=== PATIENT | female | born 1955 | race Two or more races ===

== ENCOUNTER 2020-08-11 16:58 | Emergency (ER) | payer MEDICARE, OTHER ==
[~2020-08-11] VITALS: Ht 162.6 cm; Wt 65.8 kg
[2020-08-11 21:38] LABS: Urine Bacteria NONE SEEN /hpf (None Seen); Urine Blood Negative /uL (Negative); Urine Hyaline Cast FEW /lpf (0 - 2); Urine Specific Gravity 1.016 (1.001-1.035); Urine WBC <1 /hpf (0 - 5)
[2020-08-11 22:33] LABS: Basophils # (auto) 0.1 10 ^3/uL (0-0.2); Basophils % (auto) 0.6 % (0.0-2.0); Eosinophils # (auto) 0.2 10 ^3/uL (0-0.8); Eosinophils % (auto) 2.2 % (0.0-7.0); Hematocrit 43.7 % (36.0-46.0); Lymphocytes # (auto) 2.3 10 ^3/uL (0.4-5.4); Lymphocytes % (auto) 27.3 % (10.0-50.0); Mean Corpuscular Hemoglobin 29.1 pg (28.0-32.0); Mean Corpuscular Hgb Conc. 34.3 g/dL (32.0-36.0); Mean Corpuscular Volume 84.9 fL (80.0-100.0); Monocytes # (auto) 0.8 10 ^3/uL (0-1.3); Monocytes % (auto) 8.8 % (0.0-12.0); Neutrophils # (auto) 5.2 10 ^3/uL (1.6-8.6); Neutrophils % (auto) 61.1 % (37.0-80.0); Nucleated Red Blood Cells % 0.3 %; Platelet Count (auto) 255 10^3/uL (140-450); Red Blood Cells 5.15 10^6/uL (4.0-5.20); Red Cell Distribution Width 14.9 % (11.8-14.3); White Blood Cell 8.5 10^3/uL (4.4-10.8)
[2020-08-11 22:52] LABS: Albumin 4.2 g/dL (3.4-5.0); Anion Gap 4 (5-15); Blood Urea Nitrogen 17 mg/dL (7-18); Calcium 9.2 mg/dL (8.5-10.1); Carbon Dioxide 29 mmol/L (21-32); Chloride 107 mmol/L (98-107); Glucose 106 mg/dL (74-106); Potassium 3.9 mmol/L (3.5-5.1); Sodium 140 mmol/L (136-145)
[2020-08-11 22:58] LABS: Alanine Aminotransferase 17 U/L (13-56); Alkaline Phosphatase 82 U/L (45-117); Aspartate Aminotransferase 12 U/L (15-37); Bilirubin, Total 0.4 mg/dL (0.2-1.0); GFR African American 101 mL/min; GFR Non-African American 83 mL/min; Total Protein 8.4 g/dL (6.4-8.2)
[2020-08-12 00:25] VITALS: BP 152/92
== END 2020-08-12 00:23 | disposition home or self-care (01) ==
LOC: EDBD 16:58 → ER 16:58
DX: I10 Essential (primary) hypertension (principal); M54.9 Dorsalgia, unspecified; E11.9 Type 2 diabetes mellitus without complications; Z88.6 Allergy status to analgesic agent
CPT/HCPCS: 36415; 71045; 80053; 81001; 83605; 83735; 84484; 85025; 93005

== ENCOUNTER 2024-01-20 10:42 | Inpatient (IN) | payer OTHER ==
[~2024-01-20] VITALS: Ht 30.5 cm; Wt 63.4 kg
[~2024-01-20 10:42] MED LIST: ASPI81CH59 PO; CLON0.1T PO; FENO160T PO; LOSA-534 PO; NITR0.4S29 SL; SERT25TA28 PO; SUMA50TA2 PO
[2024-01-20] MEDS: VANCOMYCIN HCL 1000 MG VL ONE (11:54)
[2024-01-20] MEDS: ACETAMINOPHEN IV 100 ML IV ONE (11:55)
[2024-01-20] MEDS ORDERED: HYDROmorphone HCL 2 MG/ML VL/or syr IV PRN (12:15)
[2024-01-20] MEDS ORDERED: ONDANSETRON HCL 4 MG/2 ML VIAL IV ONE (12:15)
[2024-01-20] MEDS ORDERED: fentaNYL CITRATE 100 MCG/2 ML VL IV PRN (12:15)
[2024-01-20] MEDS ORDERED: hydrALAZINE HCL 20 MG/ML VL IV PRN (12:15)
[2024-01-20] MEDS: ROPIVACAINE 0.5% (5MG/ML) 20ML AMPULE IJ ONE ×2 (12:42→14:00)
[2024-01-20] MEDS ORDERED: DexAMETHasone SOD PHOS 10MG/1ML VIAL INJ ONE (12:43)
[2024-01-20] MEDS ORDERED: ePHEDrine SULFATE 50 MG/ML AMP ONE (12:58)
[2024-01-20] MEDS ORDERED: MIDAZOLAM HCL 2MG/2ML 2ml VIAL (1mg/ml) ONE (12:59)
[2024-01-20] MEDS: METOPROLOL TARTRATE 50 MG TAB PO ONE (13:10)
[2024-01-20] MEDS: ACETAMINOPHEN IV 1000 MG/100ML (10MG/ML) IV ONE (13:10)
[2024-01-20] MEDS: EPINEPHrine HCL 1 MG/1 ML AMP ONE (13:17)
[2024-01-20] MEDS: TRANEXAMIC ACID 20 ML ONE (13:17)
[2024-01-20] MEDS: ceFAZolin 1GM/50ML 100 ML IV ONE (13:17)
[2024-01-20] MEDS ORDERED: fentaNYL CITRATE 100 MCG/2 ML VL ONE (13:52)
[2024-01-20] MEDS ORDERED: KETOROLAC TROMETH 30 MG/ML 1ML VIAL ONE (14:24)
[2024-01-20] MEDS ORDERED: oxyCODONE HCL 5MG TAB PO PRN ×2 (15:00)
[2024-01-20] MEDS ORDERED: NITROGLYCERIN 0.4 MG SL TAB SL SCH (15:00)
[2024-01-20] MEDS ORDERED: ACETAMINOPHEN 325 MG TAB PO PRN (15:00)
[2024-01-20] MEDS ORDERED: LABETALOL HCL 5 MG/ML ML 20ML VIAL IV ONE (15:03)
[2024-01-20] MEDS ORDERED: PROPOFOL 10 MG/ML 20 ML IV ONE (15:09)
[2024-01-20] MEDS ORDERED: hydrALAZINE HCL 20 MG/ML VL ONE (15:11)
[2024-01-20 15:35] VITALS: RESP 12; O2SAT 95
[2024-01-20] MEDS: HYDROmorphone HCL 2 MG/ML VL/or syr ONE (15:58)
[2024-01-20] MEDS: HYDROmorphone HCL 2 MG/ML VL/or syr IV PRN (15:58)
[2024-01-20] MEDS: ONDANSETRON HCL 4 MG/2 ML VIAL ONE (17:07)
[2024-01-20 17:59] VITALS: BP 148/89; PULSE 102; RESP 18; TEMP 97.2; O2SAT 98
[2024-01-20 18:50] VITALS: RESP 20; O2SAT 97
[2024-01-20 20:00] VITALS: PULSE 106; RESP 19; O2SAT 92
[2024-01-20] MEDS: ACETAMINOPHEN 325 MG TAB PO SCH (20:56)
[2024-01-20] MEDS: KETOROLAC TROMETH 30 MG/ML 1ML VIAL IV SCH (20:56)
[2024-01-20] MEDS: LOSARTAN POTASSIUM 50 MG TAB PO SCH (20:57)
[2024-01-20] MEDS: SERTRALINE HCL 50 MG TAB PO SCH (20:58)
[2024-01-20] MEDS: cloNIDine HCL 0.1 MG TAB PO SCH (20:58)
[2024-01-20] MEDS: PREGABALIN 25 MG CAP PO SCH (20:59)
[2024-01-20 21:00] VITALS: BP 159/85; PULSE 106; RESP 19; TEMP 98.2; O2SAT 92
[2024-01-20] MEDS: ceFAZolin 2 GM/D5W50ml 50 ML IV SCH (21:19)
[2024-01-20] MEDS: D5W/LACTATED RINGERS 1,000 ML IV SCH (21:20)
[2024-01-21 01:00] VITALS: BP 154/89; PULSE 117; RESP 18; TEMP 98.4; O2SAT 95
[2024-01-21] MEDS: ONDANSETRON HCL 4 MG/2 ML VIAL IV PRN (01:15)
[2024-01-21 05:00] VITALS: BP 150/89; PULSE 114; RESP 17; TEMP 98.3; O2SAT 93
[2024-01-21 06:35] LABS: Basophils # (auto) 0 10 ^3/uL (0-0.2); Chloride 103 mmol/L (98-107); Eosinophils # (auto) 0 10 ^3/uL (0-0.8); Hematocrit 34.9 % (36.0-46.0); Hemoglobin 12.3 g/dL (12.2-16.2); Lymphocytes # (auto) 0.9 10 ^3/uL (0.4-5.4); Lymphocytes % (auto) 7.4 % (10.0-50.0); Mean Corpuscular Hemoglobin 29.3 pg (28.0-32.0); Mean Corpuscular Hgb Conc. 35.1 g/dL (32.0-36.0); Mean Corpuscular Volume 83.5 fL (80.0-100.0); Monocytes # (auto) 0.8 10 ^3/uL (0-1.3); Monocytes % (auto) 6.8 % (0.0-12.0); Neutrophils # (auto) 10.7 10 ^3/uL (1.6-8.6); Neutrophils % (auto) 85.8 % (37.0-80.0); Nucleated Red Blood Cells % 0.1 %; Potassium 3.9 mmol/L (3.5-5.1); Red Blood Cells 4.18 10^6/uL (4.0-5.20); Red Cell Distribution Width 14.5 % (11.8-14.3); Sodium 136 mmol/L (136-145); White Blood Cell 12.4 10^3/uL (4.4-10.8)
[2024-01-21 06:36] LABS: Anion Gap 8 (5-15); Calcium 9.1 mg/dL (8.7-10.4); Carbon Dioxide 25 mmol/L (20-30)
[2024-01-21 06:41] LABS: BUN/Creatinine Ratio 12.1 (10.0-20.0); Blood Urea Nitrogen 7 mg/dL (9-23); Glucose 189 mg/dL (74-106)
[2024-01-21 08:00] VITALS: PULSE 109; RESP 20; O2SAT 94
[2024-01-21 08:35] VITALS: BP 137/77; PULSE 109; RESP 20; TEMP 98.9; O2SAT 94
[2024-01-21] MEDS: Fenofibrate 160 MG TABLETS PO SCH (10:00)
[2024-01-21] MEDS: ASPirin 81 mg TAB PO SCH (10:04)
[2024-01-21 12:25] VITALS: BP 122/73; PULSE 107; RESP 20; TEMP 99.6; O2SAT 90
[2024-01-21 15:54] VITALS: BP 122/73; PULSE 107; RESP 20; TEMP 37.6; O2SAT 94
== END 2024-01-21 20:00 | disposition home or self-care (01) | DRG 470 ==
LOC: SUR 10:42 → OVERFLOW 14:59 → CENTRAL 17:55
PROVIDERS: ADMIT Orthopaedic Surgery; ATTEND Orthopaedic Surgery
PROC: 0SRC069 Replacement of Right Knee Joint with Oxidized Zirconium on Polyethylene Synthetic Substitute, Cemented, Open Approach (ICD-10-PCS; principal; 2024-01-20 13:17)
DX: M17.11 Unilateral primary osteoarthritis, right knee (principal); I10 Essential (primary) hypertension; E78.5 Hyperlipidemia, unspecified; G43.909 Migraine, unspecified, not intractable, without status migrainosus; F32.9 Major depressive disorder, single episode, unspecified
CPT/HCPCS: 36415; 73562; 80048; 85025; 86850; 86900; 86901; 97110; 97163; G0378; J0131; J0171; J1100; J1885; J2250; J2405; J2704

== ENCOUNTER 2024-10-31 11:39 | Emergency (ER) | payer OTHER, MEDICAID ==
[~2024-10-31] VITALS: Ht 162.6 cm; Wt 65.0 kg
--- NOTE | 2024-10-31 12:00 | ED.PDOC ---
GI ASSESSMENT HPI Comments 69 y.o female with PMHx of HTN and hyperlipidemia, presents to the ED for a chief complaint of epigastric pain associated with nausea that started 3 weeks ago. Patient describes pain as a burning sensation that radiates up to her throat, rates it a 7/10 on the pain scale and states it is worse at night and has no alleviating factors. Patient has been seen for this complaint two separate times and was given Zofran and Lansoprazole by PCP which she has been taking x 10d but states no relief. Patient also mentions coming into the ED for elevated blood pressure, reports not taking her BP medication today as she was in a garcía to get here. At the time of triage, patient's blood pressure read 199/96 with a repeat at 204/92. Patient denies any vomiting, fever, chills, back pain. Chief Complaint: Abdominal Pain Time Seen by MD: 11:46 Primary Care Provider: SHARMAINE Reviewed Notes: Nurses Notes, Medications, Allergies Allergies: Coded Allergies: Morphine (Unverified Adverse Reaction, Intermediate, Double vision, 01/19/24) Home Meds Active Scripts Famotidine (Pepcid AC) 20 Mg Tab, 20 MG PO BID PRN, #30 TAB prn abdominal pain/upset stomach Prov:RADHAMES FAIR MD 10/31/24 Sucralfate (CARAFATE SUSP) 1 Gm/10 Ml Ss, 10 ML PO QID PRN, #1200 ML 3 Refills prn abdominal pain/upset stomach Prov:RADHAMES FAIR MD 10/31/24 Reported Medications Sumatriptan Succinate (Imitrex) 50 Mg Tab, 25 MG PO UD, TAB 01/19/24 Losartan Potassium (Losartan Potassium) 50 Mg Tab, 50 MG PO BID, TAB 01/19/24 Sertraline Hcl (Sertraline Hcl) 25 Mg Tab, 25 MG PO HS, TAB 01/19/24 Clonidine Hydrochloride (Clonidine Hcl) 0.1 Mg Tab, 0.1 MG PO BID, TAB 01/19/24 Nitroglycerin (NTROSTAT SUBLINGUAL) 0.4 Mg Sl, 0.4 MG SL PRN, TAB *MAY REPEAT EVERY 5 MINUTES X 3 TOTAL IF NO RELIEF, INITIATE ANALGESIC THERAPY. NOTIFY PHYSICIAN *Do not crush. 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 History Social History Smoker: Non-Smoker Alcohol: Denies ETOH Use Drugs: Denies Drug Use Constitutional: denies: chills, diaphoresis, fatigue, fever, malaise, sweats, weakness, others EENTM: denies: blurred vision, double vision, ear bleeding, ear discharge, ear drainage, ear pain, ear ringing, eye pain, eye redness, hearing loss, mouth pain, mouth swelling, nasal discharge, nose bleeding, nose congestion, nose pain, photophobia, tearing, throat pain, throat swelling, voice changes, others Respiratory: denies: cough, hemoptysis, orthopnea, SOB at rest, shortness of breath, SOB with excertion, stridor, wheezing, others Cardiovascular: denies: chest pain, dizzy spells, diaphoresis, Dyspnea on exertion, edema, irregular heart beat, left arm pain, lightheadedness, palpitations, PND, syncope, others Gastrointestinal: reports: abdominal pain, nausea; denies: abdomen distended, blood streaked bowels, constipated, diarrhea, dysphagia, difficulty swallowing, hematemesis, melena, poor appetite, poor fluid intake, rectal bleeding, rectal p ain, vomiting, others Genitourinary: denies: abnormal vagina bleeding, burning, dyspareunia, dysuria, flank pain, frequency, hematuria, incontinence, pain, , vagina discharge, urgency, others Neurological: denies: dizziness, fainting, headache, left sided numbness, left sided weakness, numbness, paresthesia, pre-existing deficit, right sided numbness, right sided weakness, seizure, speech problems, tingling, tremors, weakness, others Musculoskeletal: denies: back pain, gout, joint pain, joint swelling, muscle pain, muscle stiffness, neck pain, others Integumetry: denies: bruises, change in color, change in hair/nails, dryness, laceration, lesions, lumps, rash, wounds, others Allergic/Immunocompromised: denies: Difficulty Healing, Frequent Infections, Hives, Itching, others Hematologic/Lymphatic: denies: anemia, blood clots, easy bleeding, easy bruising, swollen glands, others Endocrine: denies: excessive hunger, excessive sweating, excessive thirst, excessive urination, flushing, intolerance to cold, intolerance to heat, unexplained weight gain, unexplained weight loss, others Psychiatric: denies: anxiety, bipolar disorder, depression, hopeless, panic disorder, schizophrenia, sleepless, suicidal, others All Other Systems: Reviewed and Negative Physical Exam General Appearance: No Apparent Distress HEENT: Other (Pupils and face symmetric. Moist mucous membranes.) Neck: Full Range of Motion, Normal Inspection, Supple Respiratory: Chest Non-Tender, Lungs Clear, No Accessory Muscle Use, No Respiratory Distress, Normal Breath Sounds Cardiovascular: No Edema, No JVD, Regular Rate/Rhythm Breast Exam: Deferred Gastrointestinal: Epigastric, Soft, Tenderness Genitalia: Deferred Pelvic: Deferred Rectal: Deferred Extremities: Normal inspection, Normal range of motion, Non-tender, No pedal edema Neurologic: Alert (Oriented x4), Normal Affect, Normal Mood, Other (Ambulatory without difficulty) Cerebellar Function: NOT DONE Reflexes: NOT DONE Skin: Dry, Normal Color, Warm Lymphatic: NOT DONE EKG EKG : Comments Sinus rhythm, rate 85, normal GA interval, QRS slightly prolonged at 135, QTC 445, left axis deviation, right bundle-branch block, possible old lateral infarct, anteroseptal T inversion with other nonspecific T change. Was a procedure done? Was a procedure done?: No GI differential Dx Differential Diagnosis: Angina/[place], Esophagitis, Gastritis/PUD, Gastroenteritis, Inflammatory BD, UTI, Dehydration, Diabetes/ DKA, Electrolyte Imbalance, Food Poisoning, Bacterial, Viral, Stress Ulcer, Other Other Differential Diagnosis GERD X-Ray, Labs, Meds, VS Vital Signs Date Time Temp Pulse Resp B/P (MAP) Pulse Ox O2 Delivery O2 Flow Rate FiO2 10/31/24 14:06 180/88 10/31/24 12:17 204/92 (129) 10/31/24 12:00 97.8 101 16 199/96 (130) 98 97.8 10/31/24 11:59 85 10/31/24 11:54 97.8 101 16 199/96 (130) 98 97.8 Lab Test 10/31/24 14:03 10/31/24 13:06 Range/Units Troponin I High Sensitivity < 3 L 3 L </=34 ng/L White Blood Count 6.7 4.4-10.8 10^3/uL Red Blood Count 4.85 4.0-5.20 10^6/uL Hemoglobin 14.2 12.2-16.2 g/dL Hematocrit 41.5 36.0-46.0 % Mean Corpuscular Volume 85.5 80.0-100.0 fL Mean Corpuscular Hemoglobin 29.2 28.0-32.0 pg Mean Corpuscular Hemoglobin Concent 34.2 32.0-36.0 g/dL Red Cell Distribution Width 14.1 11.8-14.3 % Platelet Count 200 140-450 10^3/uL Mean Platelet Volume 7.1 6.9-10.8 fL Neutrophils (%) (Auto) 70.2 37.0-80.0 % Lymphocytes (%) (Auto) 19.4 10.0-50.0 % Monocytes (%) (Auto) 7.2 0.0-12.0 % Eosinophils (%) (Auto) 2.6 0.0-7.0 % Basophils (%) (Auto) 0.6 0.0-2.0 % Neutrophils # (Auto) 4.7 1.6-8.6 10 ^3/uL Lymphocytes # (Auto) 1.3 0.4-5.4 10 ^3/uL Monocytes # (Auto) 0.5 0-1.3 10 ^3/uL Eosinophils # (Auto) 0.2 0-0.8 10 ^3/uL Basophils # (Auto) 0 0-0.2 10 ^3/uL Nucleated Red Blood Cells 0.0 % Sodium Level 143 136-145 mmol/L Potassium Level 4.0 3.5-5.1 mmol/L Chloride Level 107 98-107 mmol/L Carbon Dioxide Level 29 20-31 mmol/L Anion Gap 7 5-15 Blood Urea Nitrogen 10 9-23 mg/dL Creatinine 0.65 0.550-1.02 mg/dL Glomerular Filtration Rate Calc 94 >90 mL/min BUN/Creatinine Ratio 15.4 10.0-20.0 Serum Glucose 109 H 74-106 mg/dL Calcium Level 9.8 8.7-10.4 mg/dL Total Bilirubin 0.3 0.2-1.0 mg/dL Aspartate Amino Transferase (AST) 9 L 13-40 U/L Alanine Aminotransferase (ALT) 11 7-40 U/L Alkaline Phosphatase 97 46-116 U/L B-Type Natriuretic Peptide 57.73 0-100 pg/mL Total Protein 7.5 5.7-8.2 g/dL Albumin 4.5 3.2-4.8 g/dL Lipase 32 12-53 U/L Current Medications Medications (Trade) Dose Ordered Sig/Merry Route Start Time Stop Time Status Last Admin Metoclopramide HCl (Reglan Injection) 10 mg ONCE ONCE IV 10/31/24 12:00 10/31/24 12:01 DC 10/31/24 14:06 Lidocaine HCl (Xylocaine 2% Viscous) 10 ml ONCE ONCE PO 10/31/24 12:00 10/31/24 12:01 DC 10/31/24 14:06 Sucralfate (Carafate Susp) 1 gm ONCE ONCE PO 10/31/24 12:00 10/31/24 12:01 DC 10/31/24 14:05 Pantoprazole Sodium (Protonix) 40 mg ONCE ONCE IV 10/31/24 12:00 10/31/24 12:01 DC 10/31/24 14:06 Hydralazine HCl (Apresoline Injection) 10 mg ONCE ONCE IV 10/31/24 12:00 10/31/24 12:01 DC 10/31/24 14:06 PROCEDURE(s): CXR1 - CHEST XRAY 1 VIEW REASON: burning epig pain rad to mid chest/throat ORDER NUMBER(s): [id number], ACCESSION NUMBER(s): [id number] CHEST RADIOGRAPH Indication: burning epig pain rad to mid chest/throat Technique: Single frontal view of the chest was obtained Comparison: CHEST XRAY 1 VIEW on DOS: 08/11/20 FINDINGS: Lines and Tubes: None Lungs and Pleura: No focal consolidation. No effusion. No pneumothorax. Cardiomediastinal contours: Unremarkable Bones: No acute osseous abnormality. IMPRESSION: 1. No acute cardiopulmonary disease. X-Ray, Labs, Meds, VS Comment 69-year-old female with a history of hypertension and dyslipidemia presenting complaining of epigastric burning pain radiating to the mid chest and throat, associated with elevated blood pressure, possibly due to not taking her blood pressure medication today Vitals remarkable for heart rate 101, BP 191/96 Exam remarkable for epigastric mild tenderness to palpation Rhythm strip independently interpreted by me: Sinus rhythm, rate 85, no ectopy. Chest x-ray unremarkable CBC, CMP, lipase, BNP, troponin unremarkable Patient treated with the following in the ED: Hydralazine 10 mg IV, Reglan 10 mg IV, Protonix 40 mg IV, viscous lidocaine 10 mL and Carafate 1 g p.o. On re-evaluation, patient's blood pressure improved to 176/84, and epigastric pain improved. Vitals were stable. Repeat abdominal exam was benign. Hospitalization was considered, however patient had rapid improvement of symptoms with treatment in the ED, and I no longer feel hospitalization is necessary. Patient now appears stable for discharge with close outpatient fol low-up with her primary physician. Rx Carafate, Pepcid Time of 1ST Reevaluation: 11:55 Reevaluation 1ST: Unchanged Time of 2ND Reevaluation: 15:06 Reevaluation 2ND: Improved Patient Education/Counseling: Diagnosis, Treatment, Prognosis Family Education/Counseling: No Family Present Departure 1 Departure Time of Disposition: 13:00 Impression: Primary Impression: Acid reflux Qualified Codes: K21.9 - Gastro-esophageal reflux disease without esophagitis Additional Impression: Accelerated hypertension Disposition: HOME / SELF CARE / HOMELESS Condition: Stable Additional Instructions: Your blood tests, including screening test for heart attack and heart failure, were unremarkable. Your chest x-ray was unremarkable. I have prescribed medication for your symptoms. Take your blood pressure medication regularly as directed to avoid elevated blood pressure. Follow-up with primary doctor in 1-2 days. e-Prescriptions Famotidine (Pepcid AC) 20 Mg Tab 20 MG PO BID PRN, #30 TAB prn abdominal pain/upset stomach Prov: RADHAMES FAIR MD 10/31/24 Sucralfate (CARAFATE SUSP) 1 Gm/10 Ml Ss 10 ML PO QID PRN, #1200 ML 3 Refills prn abdominal pain/upset stomach Prov: RADHAMES FAIR MD 10/31/24 Discharged With: Relative Critical Care Note Critical Care Time?: No Stability Stability form required: No Heart Score Heart Score: Heart Score Response (Comments) Value History N/A 0 EKG N/A 0 Age N/A 0 Risk Factors N/A 0 Troponin N/A 0 Total 0 I personally scribed for RADHAMES FAIR MD ([email or web address]) on 10/31/24 at 12:00. Electronically submitted by Jeanine Ramirez ([facility]). RADHAMES FAIR MD October 31, 2024 12:00
--- NOTE | 2024-10-31 12:49 | DVH ---
CHEST RADIOGRAPH Indication: burning epig pain rad to mid chest/throat Technique: Single frontal view of the chest was obtained Comparison: CHEST XRAY 1 VIEW on DOS: 08/11/20 FINDINGS: Lines and Tubes: None Lungs and Pleura: No focal consolidation. No effusion. No pneumothorax. Cardiomediastinal contours: Unremarkable Bones: No acute osseous abnormality. IMPRESSION: 1. No acute cardiopulmonary disease.
[2024-10-31] MEDS ORDERED: FAMO-161 PO (13:04)
[2024-10-31] MEDS ORDERED: SUCR1SUS26 PO (13:04)
[2024-10-31 13:21] LABS: Basophils # (auto) 0 10 ^3/uL (0-0.2); Basophils % (auto) 0.6 % (0.0-2.0); Eosinophils # (auto) 0.2 10 ^3/uL (0-0.8); Eosinophils % (auto) 2.6 % (0.0-7.0); Hematocrit 41.5 % (36.0-46.0); Hemoglobin 14.2 g/dL (12.2-16.2); Lymphocytes # (auto) 1.3 10 ^3/uL (0.4-5.4); Lymphocytes % (auto) 19.4 % (10.0-50.0); Mean Corpuscular Hemoglobin 29.2 pg (28.0-32.0); Mean Corpuscular Hgb Conc. 34.2 g/dL (32.0-36.0); Mean Corpuscular Volume 85.5 fL (80.0-100.0); Monocytes # (auto) 0.5 10 ^3/uL (0-1.3); Monocytes % (auto) 7.2 % (0.0-12.0); Neutrophils # (auto) 4.7 10 ^3/uL (1.6-8.6); Neutrophils % (auto) 70.2 % (37.0-80.0); Platelet Count (auto) 200 10^3/uL (140-450); Red Blood Cells 4.85 10^6/uL (4.0-5.20); Red Cell Distribution Width 14.1 % (11.8-14.3); White Blood Cell 6.7 10^3/uL (4.4-10.8)
[2024-10-31 13:32] LABS: Alanine Aminotransferase 11 U/L (7-40); Albumin 4.5 g/dL (3.2-4.8); Alkaline Phosphatase 97 U/L (46-116); Anion Gap 7 (5-15); Aspartate Aminotransferase 9 U/L (13-40); BUN/Creatinine Ratio 15.4 (10.0-20.0); Bilirubin, Total 0.3 mg/dL (0.2-1.0); Blood Urea Nitrogen 10 mg/dL (9-23); Calcium 9.8 mg/dL (8.7-10.4); Carbon Dioxide 29 mmol/L (20-31); Chloride 107 mmol/L (98-107); Glucose 109 mg/dL (74-106); Lipase 32 U/L (12-53); Sodium 143 mmol/L (136-145); Total Protein 7.5 g/dL (5.7-8.2)
[2024-10-31] MEDS: SUCRALFATE 1 GM/10 ML ORAL SUSP PO ONE (14:05)
[2024-10-31 14:06] VITALS: PULSE 97; RESP 19; O2SAT 97
[2024-10-31] MEDS: LIDOCAINE VISCOUS 2% 15ML UD PO ONE (14:06)
[2024-10-31] MEDS: PANTOPRAZOLE 40 MG/10 ML VIAL INJ IV ONE (14:06)
[2024-10-31] MEDS: hydrALAZINE HCL 20 MG/ML VL IV ONE (14:06)
[2024-10-31] MEDS: METOCLOPRAMIDE HCL 5MG/ml INJ 2ml VIAL IV ONE (14:06)
[2024-10-31 15:00] VITALS: BP 175/87; PULSE 110; RESP 16; TEMP 98; O2SAT 98
--- NOTE | 2024-11-03 13:59 | ECG ---
[facility] Test Date: 2024-10-31 Test Time: 11:59:36 Pat Name: CARLTON PAUL Department: ER Room: Gender: F Hotel [employer] Room Service Supervisor: DR DOMINGO: 1955 Requested By: RADHAMES BRUCE Order Number: [id number] Reading MD: Ant Renae Measurements Intervals [place] Rate: 85 P: 136 IA: 136 QRS: -16 QRSD: 135 T: 8 QT: 374 QTc: 445 Interpretive Statements Sinus or ectopic atrial rhythm Right bundle branch block Left ventricular hypertrophy Lateral infarct, age indeterminate Electronically Signed On 11-04-2024 20:34:37 PDT by Ant Renae Please click the below link to view image of tracing.
== END 2024-10-31 15:00 | disposition home or self-care (01) ==
LOC: ER 11:39
DX: K21.9 Gastro-esophageal reflux disease without esophagitis (principal); I10 Essential (primary) hypertension; E78.5 Hyperlipidemia, unspecified; Z90.710 Acquired absence of both cervix and uterus; Z98.890 Other specified postprocedural states; Z79.82 Long term (current) use of aspirin; Z79.899 Other long term (current) drug therapy; Z88.5 Allergy status to narcotic agent
CPT/HCPCS: 36415; 71045; 80053; 83690; 83880; 84484; 85025; 93005; 96374; 96375; 99285; J0360; J2470; J2765